=== PATIENT | male | born 1945 | race Two or more races ===

== ENCOUNTER 2024-03-19 08:00 | Outpatient (CLI) | payer OTHER ==
[~2024-03-19] VITALS: Ht 188 cm; Wt 83.5 kg
[2024-03-19 07:53] VITALS: BP 138/89
[~2024-03-19 08:00] MED LIST: COZAAR25 MG PO; CRESTOR40 MG PO; GLUMETZA500 MG PO; PLAVIX75 MG PO; ZYRTEC10 M3
[2024-03-19 08:21] LABS: HEMATOCRIT 40.9 % (39.0-48.0); HEMOGLOBIN 13.4 g/dL (13-16.00); MEAN CELL VOLUME 86.7 fL (80.0-100.00); MEAN CORPUSCULAR HEMOGLOBIN 28.4 pg (27.00-32.0); MEAN CORPUSCULAR HGB CONC 32.7 g/dl (32.0-36.0); RED BLOOD COUNT 4.72 M/uL (4.00-6.00); RED CELL DISTRIBUTION WIDTH 14.9 % (11.5-14.5)
[2024-03-19 08:21] LABS: URINE APPEARANCE Clear; URINE BILIRRUBIN Negative (NEGATIVE); URINE BLOOD Negative; URINE COLOR Yellow; URINE GLUCOSE Negative (NEGATIVE); URINE KETONE Negative (NEGATIVE); URINE LEUKOCYTE Negative; URINE NITRATE Negative; URINE PROTEIN Trace (NEGATIVE)
[2024-03-19 08:23] LABS: PLATELET COUNT 128 K/uL (150-450)
[2024-03-19 08:25] LABS: URINE EPITHELIAL CELLS 4.4 uL (0.0-38.8); URINE RBC 5.4 uL (0.0-20.8); URINE WBC 2.8 uL (0.0-23.2)
[2024-03-19 08:43] LABS: INR 1.1; PARTIAL THROMBOPLASTIN TIME 26.7 SECONDS (22.0-34.0); PROTHROMBIN TIME 11.9 SECONDS (9.0-11.5)
[2024-03-19 09:22] LABS: URINE CAST 0.44 uL (0.0-1.40)
[2024-03-19 09:25] LABS: ALBUMIN 4.3 gm/dL (3.4-5.0); BILIRUBIN TOTAL 0.88 mg/dL (0.3-1.2); CALCIUM 9.8 mg/dL (8.5-10.1); CREATININE SERUM 1.13 mg/dL (0.70-1.30); GFR 62.6; GLOBULINA 3.6 G/DL (2.4-3.5); POTASSIUM 4.2 mEq/L (3.5-5.1); TOTAL PROTEIN 7.9 gm/dL (6.4-8.2)
== END 2024-03-19 08:01 | disposition home or self-care (01) ==
LOC: ADM 08:00 → RAD 08:00 → CIR.AMB 03-29 08:00 → EDSTATUS 03-29 08:00 → CIR.AMB 03-29 21:00
PROVIDERS: ATTEND Orthopaedic Surgery Sports Medicine
DX: M65.332 Trigger finger, left middle finger (principal); Z20.822 Contact with and (suspected) exposure to COVID-19; D68.9 Coagulation defect, unspecified; Z01.818 Encounter for other preprocedural examination; I10 Essential (primary) hypertension